=== PATIENT | male | born 1960 | race Caucasian/White ===

== ENCOUNTER → 2016-05-18 | Outpatient (CLI) | payer OTHER | LOC: RAD 08:51 | PROVIDERS: ATTEND Family Medicine | DX: M17.12 Unilateral primary osteoarthritis, left knee (principal) | CPT/HCPCS: 73562 ==

== ENCOUNTER 2016-07-21 07:47 | Emergency (ER) | payer OTHER ==
[~2016-07-21] VITALS: Ht 165.1 cm; Wt 97.6 kg
[~2016-07-21 07:47] MED LIST: ASPI-586 PO; CODE-54 PO; DOXY-231 PO; LEVO50TA6 PO; METO-272 PO; NR-METANX PO; PRAV10TA PO; SULF1TAB35 PO
--- OUTSIDE RECORDS SUMMARY | 2016-07-21 07:51 | XMS REPORT | Continuity of Care Document ---
Author Author [facility] Organization [facility] Address Unknown Phone Unavailable Care Team Providers Care Engineering Associate Name Role Phone BALA BLANCAS MD PCP [phone] Insurance Providers Payer Name Policy Number Subscriber Name Relationship [facility] [id number] Maverick Mckeon 19 Self / Same As Patient Chief Complaint and Reason for Visit Chief Complaint Genitourinary Complaint Reason for Visit Urinary tract infection Problems Medical Problems Problem Onset Date Status Chest pain 12/01/2012 Active Urinary tract infection Unknown Active Medications Medication Dose Route Sig Days/Qty Instructions Order Date Discontinued Date Status Aspirin 81 Mg ORAL daily 12/01/12 Active Multivitamins 1 Ea ORAL daily 12/01/12 Active Doxycycline Monohydrate 100 Mg ORAL TWICE A DAY 20 Qty 12/01/12 Discontinued Acetaminophen/Codeine 1 Tab ORAL EVERY 4HRS PRN PAIN 10 Qty 06/08/14 Active Sulfamethoxazole/Trimethoprim 1 Tab ORAL TWICE A DAY 14 Qty 06/08/14 Active Social History No social history. Hospital Discharge Instructions No hospital discharge instructions. Plan of Care Discharge Date 06/08/14 3:34pm Disposition 01 HOME OR SELF-CARE Condition at Discharge Stable Instructions/Education Provided Urinary Tract Infection in Men (ED) Prescriptions See Medications Section Referrals BALA BLANCAS MD Additional Instructions/Education Follow up in seven to ten days for a repeat urinalysis. Return to the ER as needed. Some of your test results may not be complete prior to your leaving the Emergency Department. The Emergency Department is not authorized to give test results over the phone. Please contact the doctor's office listed in this packet of information for your final results. Follow up with your primary care physician or return to the Emergency Department for worsening or worrisome symptoms. * Emergency Department phone number: [phone], x [phone]* MEDICAL RECORD If you need copies of your X-rays, call [phone]. If you need copies of your medical record, including lab results, a signed authorization for release of records will be required. A telephone call for release of Health Information is not allowed. BILLING Billing can sometimes be confusing and frustrating. To help avoid confusion in the future, please take a moment to acquaint yourself with the billing parties for services. SERVICE BILLING [employer] Emergency Room Services [facility] Physician Services [facility] [place] [facility] Patients will receive bills for services from the appropriate provider. If you have any questions about your [facility] bill, our staff will be happy to assist you. Please call [phone], and ask for the billing department. THANK YOU for choosing [facility] as your emergency care provider! Functional Status No functional status results. Allergies, Adverse Reactions, Alerts Allergen Type Severity Reaction Status Last Updated No Known Drug Allergies Active 12/01/12 Immunizations No immunization records. Vital Signs Acute Vital Signs Vital Response Date/Time Temperature (Fahrenheit) 98.0 Pulse 114 bpm Respirations 20 Height 5 ft 7 in Weight 203 lb Body Mass Index 31.0 kg/m^2 Results Test Source Date Result Interp. Ref. Range Comments Urine Mucus June 08, 2014 3:02pm 3+ H Urine collection method Clean Catch Urine Squamous Epithelial Cells June 08, 2014 3:02pm 10-20 /LPF Urine collection method Clean Catch Urine Bacteria June 08, 2014 3:02pm 3+ /HPF H Urine collection method Clean Catch Urine WBC June 08, 2014 3:02pm >100 /HPF Urine collection method Clean Catch Urine RBC June 08, 2014 3:02pm 5-10 /HPF H Urine collection method Clean Catch Urine Collection Type June 08, 2014 3:02pm Random voided Urine collection method Clean Catch Volume Urine Centrifuged June 08, 2014 3:02pm 7 ml Urine collection method Clean Catch Urine Leukocyte Esterase June 08, 2014 3:02pm 1+ H Negative Urine collection method Clean Catch Urine Urobilinogen June 08, 2014 3:02pm 2.0 mg/dL H 0.2-1.0 Urine collection method Clean Catch Urine Bilirubin June 08, 2014 3:02pm Negative Negative Urine collection method Clean Catch Urine Nitrite June 08, 2014 3:02pm Positive H Negative Urine collection method Clean Catch Urine Ketones June 08, 2014 3:02pm Trace H Negative Urine collection method Clean Catch Urine Blood June 08, 2014 3:02pm 1+ H Negative Urine collection method Clean Catch Urine Glucose (UA) June 08, 2014 3:02pm Negative Negative Urine collection method Clean Catch Urine Protein June 08, 2014 3:02pm 2+ H Negative Urine collection method Clean Catch Urine Specific [place] June 08, 2014 3:02pm 1.025 1.005-1.030 Urine collection method Clean Catch Urine pH June 08, 2014 3:02pm 6.0 5.0 - 8.0 Urine collection method Clean Catch Urine Clarity June 08, 2014 3:02pm Cloudy Urine collection method Clean Catch Urine Color June 08, 2014 3:02pm Dark yellow Urine collection method Clean Catch Activated Partial Thromboplast Time December 01, 2012 11:10am 24.4 SEC L 25.0-39.0 Alanine Aminotransferase (ALT/SGPT) March 11, 2014 7:40am 28 U/L L 30 -65 Albumin March 11, 2014 7:40am 4.5 G/DL N 3.4-5.0 Albumin/Globulin Ratio March 11, 2014 7:40am 1.451 N 1.1-1.8 Alkaline Phosphatase March 11, 2014 7:40am 53 U/L N 38-126 Juan Pablo Test December 01, 2012 11:45am Y Anion Gap March 11, 2014 7:40am 14.6 MEQ/L N 3-15 Arterial Blood Base Excess December 01, 2012 11:45am 1.0 N -2.0-3.0 Arterial Blood HCO3 December 01, 2012 11:45am 25.2 MEQ/L N 22.0-26.0 Arterial Blood Oxygen Saturation December 01, 2012 11:45am 87 % L 95-98 Arterial Blood Partial Pressure CO2 December 01, 2012 11:45am 38 mmHg N 35 -45 Arterial Blood Partial Pressure O2 December 01, 2012 11:45am 51 mmHg L 80- 105 Arterial Blood Total CO2 December 01, 2012 11:45am 26.0 SIMON/L N 23.0-27.0 Arterial Blood pH December 01, 2012 11:45am 7.43 N 7.35-7.45 All ABG Results called salvadorho read back the results. Called by Alejandro Escobar at 1431 Aspartate Amino Transf (AST/SGOT) March 11, 2014 7:40am 19 U/L N 15- 37 BUN/Creatinine Ratio March 11, 2014 7:40am 21 H 10-20 Basophils # (Auto) March 11, 2014 7:40am 0.0 10^3uL Basophils (%) (Auto) March 11, 2014 7:40am 0 % N 0-2 Blood Gas Puncture Site December 01, 2012 11:45am Left radial Blood Gas Ventilator Setting December 01, 2012 11:45am No Blood Urea Nitrogen March 11, 2014 7:40am 21 MG/DL H 7-18 C-Reactive Protein December 01, 2012 11:10am 0.90 MG/DL N 0.0-0.9 Calcium Level March 11, 2014 7:40am 10.7 MG/DL N 8.8-10.8 Calculated Osmolality March 11, 2014 7:40am 275 MOSM/L L 280-300 Carbon Dioxide Level March 11, 2014 7:40am 23 MMOL/L N 22-29 Chloride Level March 11, 2014 7:40am 108 mmol/L N 98-108 Cholesterol Level March 11, 2014 7:40am 219 mg/dL H 0-199 Creatine Kinase MB December 01, 2012 11:10am 1.1 NG/ML N 0.0-6.0 Creatinine March 11, 2014 7:40am 1.00 mg/dL N 0.8-1.5 D-Dimer December 01, 2012 11:10am < 0.19 ug/mL L 0.20-0.41 Eosinophils # (Auto) March 11, 2014 7:40am 0.1 10^3uL Eosinophils (%) (Auto) March 11, 2014 7:40am 2 % N 0-4 Erythrocyte Sedimentation Rate March 11, 2014 7:40am 6 mm/hr N 0-12 Glucose Level March 11, 2014 7:40am 105 mg/dL DN 70-110 HDL Cholesterol March 11, 2014 7:40am 38 mg/dL L 40-84 Hematocrit March 11, 2014 7:40am 47.60 % N 39.00-50.00 Hemoglobin March 11, 2014 7:40am 15.8 g/dL N 13.5-17.0 Hemoglobin A1c March 11, 2014 7:40am 5.8 % N 4.8-6.0 LDL Cholesterol, Calculated March 11, 2014 7:40am 152 mg/dL H 0-130 Lymphocytes # (Auto) March 11, 2014 7:40am 2.5 X10^3 Lymphocytes (%) (Auto) March 11, 2014 7:40am 27 % N 20-46 Mean Corpuscular Hemoglobin March 11, 2014 7:40am 29.0 PG N 26.0- 34.0 Mean Corpuscular Hemoglobin Concent March 11, 2014 7:40am 33.2 g/dL N 31.0-37.0 Mean Corpuscular Volume March 11, 2014 7:40am 87 FL N 80-100 Mean Platelet Volume March 11, 2014 7:40am 9.6 FL H 6.0-9.5 Monocytes # (Auto) March 11, 2014 7:40am 0.7 X10^3 Monocytes (%) (Auto) March 11, 2014 7:40am 8 % N 3-11 Neutrophils # (Auto) March 11, 2014 7:40am 5.8 X10^3 Neutrophils (%) (Auto) March 11, 2014 7:40am 64 % N 51-67 Platelet Count March 11, 2014 7:40am 323 10^3uL N 150-450 Potassium Level March 11, 2014 7:40am 4.4 mmol/L N 3.5-5.1 Prothromb Time International Ratio December 01, 2012 11:10am 0.8 N 0.8- 1.4 Prothrombin Time December 01, 2012 11:10am 11.8 SEC L 12.3-14.4 Red Blood Count March 11, 2014 7:40am 5.45 10^6uL N 4.50-5.50 Red Cell Distribution Width March 11, 2014 7:40am 12.4 % N 11.8-15.6 Rubeola (Measles) Antibody November 12, 2013 11:36am Positive () Rubeola (Measles) Interpretation November 12, 2013 11:36am - () <0.91= Negative 0.91 - 1.09=Equivocal >1.09=Positive Positive results suggest response to immunization or prior exposure. Sodium Level March 11, 2014 7:40am 141 MMOL/L N 135-150 Thyroid Stimulating Hormone (TSH) March 11, 2014 7:40am 5.73 UIU/ML DH 0.46-4.68 Thyroxine (T4) March 11, 2014 7:40am 5.6 ug/dL 4.8-11.7 Total Bilirubin March 11, 2014 7:40am 0.3 MG/DL N 0.1-1.0 Total Creatine Kinase March 11, 2014 7:40am 122 U/L N 55-170 Total Protein March 11, 2014 7:40am 7.6 G/DL N 6.4-8.5 Triglycerides Level March 11, 2014 7:40am 147 mg/dL 0-149 Troponin I December 01, 2012 11:10am < 0.012 ng/mL 0.010-0.080 VLDL Cholesterol March 11, 2014 7:40am 29 mg/dL H 0-28 White Blood Count March 11, 2014 7:40am 9.17 10^3uL N 4.0-11.0 Lab Scanned Report December 03, 2012 3:08pm ARTERIAL BLOOD GAS [id number] Estimat Glomerular Filtration Rate March 11, 2014 7:40am 94.9 FiO2 % December 01, 2012 11:45am 21.0 % Estimated GFR (Non- March 11, 2014 7:40am 78.5 Rubeola (Measles) IgG Ab Index November 12, 2013 11:36am 6.42 OD Ratio > 1.09 Calcium/Ionized Calcium Ratio March 11, 2014 7:40am 4.00 mg/dL Procedures No known history of procedures. Encounters Encounter Location Date/Time Departed Emergency Room [facility] 06/08/14 2:57pm Recent Diagnosis
--- OUTSIDE RECORDS SUMMARY | 2016-07-21 07:52 | XMS REPORT | Continuity of Care Document ---
Author Author [facility] Organization [facility] Address Unknown Phone Unavailable Care Team Providers Care Therapy Teacher Name Role Phone BALA BLANCAS MD PCP [phone] Insurance Providers Payer Name Policy Number Subscriber Name Relationship [facility] [id number] Maverick Mckeon 19 Self / Same As [...] worrisome symptoms. * Emergency Department phone number: [phone], x [phone]* MEDICAL RECORD If you need copies of your X-rays, call [phone] x [phone]. If you need copies of [...] the billing parties for services. SERVICE BILLING [employer] Emergency Room Services [facility] Physician Services [facility] [place] [facility] Patients will receive bills for services from the appropriate provider. If you have any questions about your [facility] bill, our staff will be happy to assist you. Please call [phone], and ask for the billing department. THANK YOU for choosing [facility] as your emergency care provider! Functional Status [...] Urine collection method Clean Catch Urine Specific [place] June 08, 2014 3:02pm 1.025 1.005-1.030 Urine [...] read back the results. Called by Alejandro Esocbar at 1431 Aspartate Amino Transf (AST/SGOT) March [...] December 03, 2012 3:08pm ARTERIAL BLOOD GAS [id number] Estimat Glomerular Filtration Rate March 11, 2014 7:40am 94.9 FiO2 % December 01, 2012 11:45am 21.0 % Estimated GFR (Non- March 11, 2014 7:40am 78.5 Rubeola (Measles) IgG Ab Index November 12, 2013 11:36am 6.42 OD Ratio > 1.09 Calcium/Ionized Calcium Ratio March 11, 2014 7:40am 4.00 mg/dL Procedures No known history of procedures. Encounters Encounter Location Date/Time Departed Emergency Room [facility] 06/08/14 2:57pm Recent Diagnosis
[2016-07-21] MEDS ORDERED: METO25TA2 PO (08:08)
[2016-07-21] MEDS ORDERED: LSRT50T PO (08:08)
[2016-07-21] MEDS ORDERED: PRAV40TA2 PO (08:08)
[2016-07-21 08:46] LABS: BASOPHILS % (AUTO) 0 % (0-2); EOSINOPHILS # (AUTO) 0.2 10^3uL; EOSINOPHILS % (AUTO) 3 % (0-4); LYMPHOCYTES # (AUTO) 2.6 X10^3; MEAN CORPUSCULAR HEMOGLOBIN 29.3 PG (26.0-34.0); MEAN CORPUSCULAR HGB CONC 33.1 g/dL (31.0-37.0); MEAN CORPUSCULAR VOLUME 89 FL (80-100); MEAN PLATELET VOLUME 9.7 FL (6.0-9.5); MONOCYTES # (AUTO) 0.7 X10^3; MONOCYTES % (AUTO) 8 % (3-11); NEUTROPHILS # (AUTO) 4.7 X10^3; NEUTROPHILS % (AUTO) 57 % (51-67); PLATELET COUNT 299 10^3uL (150-450); WHITE BLOOD COUNT 8.21 10^3uL (4.0-11.0)
[2016-07-21 09:06] LABS: ALBUMIN 4.4 g/dL (3.4-5.0); ANION GAP 18.7 MEQ/L (3-15); CALCULATED IONIZED CALCIUM 4.1 mg/dL (3.8-4.6); TOTAL PROTEIN 7.7 g/dL (6.4-8.5)
[2016-07-21] MEDS ORDERED: HYDR25SU28 RC (09:34)
[2016-07-21 09:40] VITALS: BP 163/101
== END 2016-07-21 09:41 | disposition home or self-care (01) ==
LOC: ED 07:48
DX: K62.5 Hemorrhage of anus and rectum (principal)
CPT/HCPCS: 36415; 46600; 80053; 85025; 99283; 99284